=== PATIENT | female | born 1990 | race Caucasian/White ===

== ENCOUNTER 2016-06-27 12:16 | Emergency (ER) | payer MEDICAID, OTHER ==
[~2016-06-27] VITALS: Ht 160 cm; Wt 80.0 kg
[2016-06-27 12:17] VITALS: BP 134/67; PULSE 80; RESP 20; TEMP 98.1; O2SAT 99
--- NOTE | 2016-06-27 13:33 | PD ---
HPI Chief Complaint: Related Problem Time Seen by Provider: 13:28 Travel History International Travel<30 days: No Contact w/Intl Traveler<30days: No Traveled to known affect area: No History of Present Illness HPI Patient is a 26-year-old female presenting to the emergency department evaluation of abdominal pain. Patient states that she is approximately 14 weeks . She has not had any care yet. This is her first . She denies any nausea, vomiting, fever, chills, diarrhea, dysuria. She does report a slight vaginal discharge with no odor. She states the abdominal pain last for a few seconds every time she sneezes or coughs. When it does occur the pain is a 7 out of 10. Patient reports tobacco use but denies any alcohol or illicit drug use. She denies any significant past medical history. [facility] Past Medical History Medical History: Denies Significant Hx ?: LMP: 03/07/2016 Past Surgical History Surgical History: No Previous Surgery Social History Alcohol Use: No Tobacco Use: Yes Substance Use: No Allergies-Medications (Allergen,Severity, Reaction): Coded Allergies: No Known Allergies (Unverified , 06/27/16) Reported Meds & Prescriptions Reported Meds & Active Scripts Active No Active Prescriptions or Reported Medications Review of Systems Except as stated in HPI: all other systems reviewed are Neg Gastrointestinal: Positive: Abdominal Pain Genitourinary: Positive: Discharge Physical Exam Narrative GENERAL: Well-developed, well-nourished, alert female. Resting comfortably in no acute distress SKIN: Warm and dry. HEAD: Atraumatic. Normocephalic. EYES: Pupils equal and round. No scleral icterus. No injection or drainage. ENT: No nasal bleeding or discharge. Mucous membranes pink and moist. NECK: Trachea midline. No JVD. CARDIOVASCULAR: Regular rate and rhythm. No murmur appreciated. RESPIRATORY: No accessory muscle use. Clear to auscultation. Breath sounds equal bilaterally. GASTROINTESTINAL: Abdomen soft, non-tender, nondistended. Hepatic and splenic margins not palpable. MUSCULOSKELETAL: No obvious deformities. No clubbing. No cyanosis. No edema. NEUROLOGICAL: Awake and alert. No obvious cranial nerve deficits. Motor grossly within normal limits. Normal speech. PSYCHIATRIC: Appropriate mood and affect; insight and judgment normal. GENITOURINARY: No dysuria, no frequency, thick white vaginal discharge, no blood noted in vaginal vault, cervix appears closed. Data Data Last Documented VS Vital Signs Date Time Temp Pulse Resp B/P Pulse Ox O2 Delivery O2 Flow Rate FiO2 06/27/16 17:40 100 06/27/16 15:26 63 18 123/56 Room Air 06/27/16 12:17 98.1 Orders Beta Hcg (Quant/Titer) (06/27/16 13:20) Urinalysis - C+S If Indicated (06/27/16 13:20) Wet Prep Profile (06/27/16 13:20) Gc And Chlamydia Pcr (06/27/16 13:20) Ed Urine Pregnancytest Poc (06/27/16 13:20) Complete Blood Count With Diff (06/27/16 15:24) Basic Metabolic Panel (Bmp) (06/27/16 15:24) Complete Rh (06/27/16 15:24) Labs Laboratory Tests Test 06/27/16 06/27/16 06/27/16 06/27/16 13:28 13:31 13:32 15:25 Urine Color LIGHT-YELLOW Urine Turbidity CLEAR Urine pH 7.0 Urine Specific [place] 1.005 Urine Protein NEG mg/dL Urine Glucose (UA) NEG mg/dL Urine Ketones NEG mg/dL Urine Occult Blood NEG Urine Nitrite NEG Urine Bilirubin NEG Urine Urobilinogen LESS THAN 2.0 MG/DL Urine Leukocyte Esterase SMALL Urine RBC LESS THAN 1 /hpf Urine WBC 1 /hpf Urine Squamous Epithelial 2 /hpf Cells Urine Bacteria RARE /hpf Microscopic Urinalysis Comment CULT NOT INDICATED Chlamydia trachomatis DNA NOT DETECTED (PCR) Neisseria gonorrhoeae DNA NOT DETECTED (PCR) Human Chorionic Gonadotropin, 68666 MIU/ML Quant Clue Cells (Wet Prep) NONE SEEN Vaginal Trichomonas (Wet Prep) NONE SEEN Vaginal Yeast (Wet Prep) NONE SEEN White Blood Count 12.1 TH/MM3 Red Blood Count 4.16 MIL/MM3 Hemoglobin 12.6 GM/DL Hematocrit 37.1 % Mean Corpuscular Volume 89.1 FL Mean Corpuscular Hemoglobin 30.2 PG Mean Corpuscular Hemoglobin 33.9 % Concent Red Cell Distribution Width 12.7 % Platelet Count 178 TH/MM3 Mean Platelet Volume 9.5 FL Neutrophils (%) (Auto) 75.9 % Lymphocytes (%) (Auto) 18.8 % Monocytes (%) (Auto) 4.2 % Eosinophils (%) (Auto) 0.4 % Basophils (%) (Auto) 0.7 % Neutrophils # (Auto) 9.2 TH/MM3 Lymphocytes # (Auto) 2.3 TH/MM3 Monocytes # (Auto) 0.5 TH/MM3 Eosinophils # (Auto) 0.1 TH/MM3 Basophils # (Auto) 0.1 TH/MM3 CBC Comment DIFF FINAL Differential Comment Sodium Level 141 MEQ/L Potassium Level 3.9 MEQ/L Chloride Level 105 MEQ/L Carbon Dioxide Level 26.1 MEQ/L Anion Gap 10 MEQ/L Blood Urea Nitrogen 6 MG/DL Creatinine 0.56 MG/DL Estimat Glomerular Filtration 129 ML/MIN Rate Random Glucose 79 MG/DL Calcium Level 8.9 MG/DL Blood Type O POSITIVE Rho(D) Type POSITIVE MDM Medical Decision Making Medical Screen Exam Complete: Yes Emergency Medical Condition: Yes Interpretation(s) Vital Signs Date Time Temp Pulse Resp B/P Pulse Ox O2 Delivery O2 Flow Rate FiO2 06/27/16 12:17 98.1 80 20 134/67 99 Room Air Differential Diagnosis Round ligament pain versus urinary tract infection versus threatened versus other Narrative Course Patient is a 26-year-old female presenting to emergency for evaluation of lower abdominal pain that occurs with coughing and sneezing. Patient is an approximate 14 weeks with no care. Symptoms appear consistent with round ligament pain however due to patient's lack of care, labs and imaging ordered. We'll perform a pelvic exam and send GC, chlamydia, wet prep. Workup initiated in triage, care patient will be transferred to provider when medical bed is available. Pelvic exam done, GC chlamydia and wet prep sent. Scripts No Active Prescriptions or Reported Farhads Lorna Hay Jun 27, 2016 13:33
[2016-06-27 14:01] LABS: BACTERIA, URINE RARE /hpf; BLOOD, URINE NEG (NEG); GLUCOSE,URINE NEG (NEG); KETONE, URINE NEG (NEG); NITRITE,URINE NEG (NEG); SQUAMOUS EPITHELIAL CELL URINE 2 /hpf (0-5); URINE COLOR LIGHT-YELLOW (YELLW/STRAW)
[2016-06-27 14:08] LABS: COMMENT (UR) CULT NOT INDICATED; CULTURE IF INDICATED CULT NOT INDICATED
[2016-06-27 14:31] LABS: BETA HCG QUANT 20819 MIU/ML (0-5)
[2016-06-27 15:26] VITALS: BP 123/56; PULSE 63; RESP 18; O2SAT 99
--- NOTE | 2016-06-27 15:26 | PD ---
Physical Exam Narrative Patient was seen by my cosmetic sales assistant and signed out to me. Data Data Last Documented VS Vital Signs Date Time Temp Pulse Resp B/P Pulse Ox O2 Delivery O2 Flow Rate FiO2 06/27/16 15:26 63 18 123/56 99 Room Air 06/27/16 12:17 98.1 Orders Beta Hcg (Quant/Titer) (06/27/16 13:20) Urinalysis - C+S If Indicated (06/27/16 13:20) Wet Prep Profile (06/27/16 13:20) Gc And Chlamydia Pcr (06/27/16 13:20) Ed Urine Pregnancytest Poc (06/27/16 13:20) Complete Blood Count With Diff (06/27/16 15:24) Basic Metabolic Panel (Bmp) (06/27/16 15:24) Complete Rh (06/27/16 15:24) Labs Laboratory Tests Test 06/27/16 06/27/16 06/27/16 06/27/16 13:28 13:31 13:32 15:25 Urine Color LIGHT-YELLOW Urine Turbidity CLEAR Urine pH 7.0 Urine Specific [place] 1.005 Urine Protein NEG mg/dL Urine Glucose (UA) NEG mg/dL Urine Ketones NEG mg/dL Urine Occult Blood NEG Urine Nitrite NEG Urine Bilirubin NEG Urine Urobilinogen LESS THAN 2.0 MG/DL Urine Leukocyte Esterase SMALL Urine RBC LESS THAN 1 /hpf Urine WBC 1 /hpf Urine Squamous Epithelial 2 /hpf Cells Urine Bacteria RARE /hpf Microscopic Urinalysis Comment CULT NOT INDICATED Chlamydia trachomatis DNA NOT DETECTED (PCR) Neisseria gonorrhoeae DNA NOT DETECTED (PCR) Human Chorionic Gonadotropin, 34605 MIU/ML Quant Clue Cells (Wet Prep) NONE SEEN Vaginal Trichomonas (Wet Prep) NONE SEEN Vaginal Yeast (Wet Prep) NONE SEEN White Blood Count 12.1 TH/MM3 Red Blood Count 4.16 MIL/MM3 Hemoglobin 12.6 GM/DL Hematocrit 37.1 % Mean Corpuscular Volume 89.1 FL Mean Corpuscular Hemoglobin 30.2 PG Mean Corpuscular Hemoglobin 33.9 % Concent Red Cell Distribution Width 12.7 % Platelet Count 178 TH/MM3 Mean Platelet Volume 9.5 FL Neutrophils (%) (Auto) 75.9 % Lymphocytes (%) (Auto) 18.8 % Monocytes (%) (Auto) 4.2 % Eosinophils (%) (Auto) 0.4 % Basophils (%) (Auto) 0.7 % Neutrophils # (Auto) 9.2 TH/MM3 Lymphocytes # (Auto) 2.3 TH/MM3 Monocytes # (Auto) 0.5 TH/MM3 Eosinophils # (Auto) 0.1 TH/MM3 Basophils # (Auto) 0.1 TH/MM3 CBC Comment DIFF FINAL Differential Comment Sodium Level 141 MEQ/L Potassium Level 3.9 MEQ/L Chloride Level 105 MEQ/L Carbon Dioxide Level 26.1 MEQ/L Anion Gap 10 MEQ/L Blood Urea Nitrogen 6 MG/DL Creatinine 0.56 MG/DL Estimat Glomerular Filtration 129 ML/MIN Rate Random Glucose 79 MG/DL Calcium Level 8.9 MG/DL Blood Type O POSITIVE Rho(D) Type POSITIVE MDM Supervised Visit with [facility]: Yes Interpretation(s) 1624 PM. Blood type O+ Procedures Procedure Narrative Emergency Department Pelvic ultrasound was performed with patient consent. The curvilinear probe was used in the transverse and sagittal views within the suprapubic region revealing single intrauterine . heart rate was 140. Active fetus Diagnosis Primary Impression: Pelvic pain during Patient Instructions: General Instructions Additional Instruction: vitamins as directed. Follow-up with local OB. Return if increased pelvic pain, vaginal bleeding. Med/Other Pt SpecificInfo: No Change to Meds Scripts No Active Prescriptions or Reported Meds Disposition: 01 DISCHARGE HOME Condition: Stable Tom Grijalva MD Jun 27, 2016 15:26
[2016-06-27 15:53] LABS: AUTOMATED NEUTROPHIL # 9.2 TH/MM3 (1.8-7.7); BASOPHIL # 0.1 TH/MM3 (0-0.2); BASOPHIL % 0.7 % (0.0-2.0); EOSINOPHIL # 0.1 TH/MM3 (0-0.4); EOSINOPHIL % 0.4 % (0.0-4.0); HEMATOCRIT 37.1 % (35.0-46.0); HEMO FLAGS DIFF FINAL; LYMPH % 18.8 % (9.0-44.0); LYMPHOCYTE # 2.3 TH/MM3 (1.0-4.8); MEAN CELL VOLUME 89.1 FL (80.0-100.0); MEAN CORPUSCULAR HEMOGLOBIN 30.2 PG (27.0-34.0); MEAN CORPUSCULAR HGB CONC 33.9 % (32.0-36.0); MONO % 4.2 % (0.0-8.0); NEUT % 75.9 % (16.0-70.0); PLATELET COUNT 178 TH/MM3 (150-450); RED BLOOD COUNT 4.16 MIL/MM3 (4.00-5.30); RED CELL DISTRIBUTION WIDTH 12.7 % (11.6-17.2); WHITE BLOOD COUNT 12.1 TH/MM3 (4.0-11.0)
[2016-06-27 16:15] LABS: BICARBONATE 26.1 MEQ/L (21.0-32.0); POTASSIUM 3.9 MEQ/L (3.5-5.1)
[2016-06-27 16:21] LABS: CHLAMYDIA PCR NOT DETECTED (NOT DETECT); NEISSERIA PCR NOT DETECTED (NOT DETECT)
== END 2016-06-27 17:40 | disposition home or self-care (01) ==
LOC: NEPA 12:16
DX: O26.892 Other specified pregnancy related conditions, second trimester (principal); R10.2 Pelvic and perineal pain; N89.8 Other specified noninflammatory disorders of vagina; O09.32 Supervision of pregnancy with insufficient antenatal care, second trimester; Z72.0 Tobacco use; Z3A.14 14 weeks gestation of pregnancy
CPT/HCPCS: 80048; 81001; 84702; 84703; 85025; 86901; 87210; 87491; 87591; 99284